=== PATIENT | female | born 1990 | race Asian ===

== ENCOUNTER 2021-07-14 15:40 | Emergency (ER) | payer SELFPAY ==
[2021-07-14 16:14] VITALS: BP 121/76
--- NOTE | 2021-07-14 16:23 | Emergency Department Report ---
ED General Adult HPI - General Chief complaint: Urogenital-Female Stated complaint: BLADDER PAIN Time Seen by Provider: 07/14/21 15:56 Source: patient Mode of arrival: Ambulatory Limitations: No Limitations - History of Present Illness Initial comments: 30-year-old -[place] female patient presents with complaints of hematuria and pelvic pain post urination today. She denies any abnormal vaginal discharge, but admits to urinary frequency and dyspareunia along with postcoital bleeding. No fever/chills/sweats per patient. She also denies any abdominal surgical history. Current pain is 0/10 in severity. She denies any significant past medical history - Related Data Previous Rx's Medication Instructions Recorded Last Taken Type Doxycycline Monohydrate 100 mg PO BID 7 Days #14 capsule 07/14/21 Unknown Rx metroNIDAZOLE [Flagyl TAB] 500 mg PO Q12HR 7 Days #14 tab 07/14/21 Unknown Rx Allergies Allergy/AdvReac Type Severity Reaction Status Date / Time No Known Allergies Allergy Unverified 07/14/21 15:41 ED Review of Systems ROS: Stated complaint: BLADDER PAIN Other details as noted in HPI Constitutional: denies: chills, fever, malaise Gastrointestinal: denies: nausea, vomiting, diarrhea, constipation, hematemesis Genitourinary: frequency, hematuria. denies: discharge, abnormal menses Skin: denies: lesions, change in color Hematological/Lymphatic: denies: swollen glands ED Past Medical Hx - Medications Home Medications: Home Medications Medication Instructions Recorded Confirmed Last Taken Type Doxycycline Monohydrate 100 mg PO BID 7 Days #14 capsule 07/14/21 Unknown Rx metroNIDAZOLE [Flagyl TAB] 500 mg PO Q12HR 7 Days #14 tab 07/14/21 Unknown Rx ED Physical Exam - General Limitations: No Limitations General appearance: alert, in no apparent distress - Head Head exam: Present: atraumatic, normocephalic - Eye Eye exam: Present: normal appearance. Absent: scleral icterus - Respiratory Respiratory exam: Absent: respiratory distress - Cardiovascular Cardiovascular Exam: Present: regular rate - GI/Abdominal GI/Abdominal exam: Present: soft, normal bowel sounds. Absent: distended, tenderness, guarding, rebound, rigid - Speculum exam: Present: vaginal discharge (White). Absent: cervical discharge Bi-manual exam: Present: other (Cervix is mildly friable). Absent: cervical motion tendernes - Neurological Exam Neurological exam: Present: alert, oriented X3, normal gait - Psychiatric Psychiatric exam: Present: normal affect, normal mood - Skin Skin exam: Present: warm, dry, intact, normal color. Absent: rash ED Course Vital Signs 07/14/21 15:43 Temperature 98.6 F Pulse Rate 87 Respiratory 18 Rate Blood Pressure 121/76 O2 Sat by Pulse 99 Oximetry ED Medical Decision Making - Lab Data Lab Results 07/14/21 Range/Units Unknown Urine Color Yellow (Yellow) Urine Turbidity Cloudy (Clear) Urine pH 6.0 (5.0-7.0) Ur Specific [place] 1.023 (1.003-1.030) Urine Protein 100 mg/dl (Negative) mg/dL Urine Glucose (UA) Neg (Negative) mg/dL Urine Ketones Neg (Negative) mg/dL Urine Blood Lg (Negative) Urine Nitrite Pos (Negative) Urine Bilirubin Neg (Negative) Urine Urobilinogen < 2.0 (<2.0) mg/dL Ur Leukocyte Esterase Lg (Negative) Urine WBC (Auto) > 182.0 H (0.0-6.0) /HPF Urine RBC (Auto) > 182.0 (0.0-6.0) /HPF U Epithel Cells (Auto) 4.0 (0-13.0) /HPF Urine Bacteria (Auto) 2+ (Negative) /HPF Urine Mucus 3+ /HPF Urine HCG, Qual Negative (Negative) - Medical Decision Making 30-year-old -[place] female patient presents with complaints of hematuria and pelvic pain post urination today. She denies any abnormal vaginal discharge, but admits to urinary frequency and dyspareunia along with postcoital bleeding. No fever/chills/sweats per patient. She also denies any abdominal surgical history. Current pain is 0/10 in severity. She denies any significant past medical history UA shows >182 WBCs. No CMT on exam, however there is white vaginal discharge noted. Wet prep is negative for trichomonas, positive for bacterial vaginosis, and also shows polymorphonuclear cells. Will cover patient for gonorrhea and chlamydia given wet prep findings and physical exam. Patient informed to also have her partner tested and treated and to refrain from intercourse for 2 to 3 weeks. Recommend patient follows up with the health department or another facility for further STI testing. She is well-appearing, her vitals are within normal limits, she is stable for discharge home. Strict return precautions were discussed in detail with patient who verbalizes understanding. Critical care attestation.: If time is entered above; I have spent that time in minutes in the direct care of this critically ill patient, excluding procedure time. ED Disposition Clinical Impression: Bacterial vaginosis, UTI (urinary tract infection) Disposition: HOME / SELF CARE / HOMELESS Is pt being admited?: No Condition: Stable Instructions: Bacterial Vaginosis (ED), Bacterial Vaginosis, Urinary Tract Infection, Adult, [id number], Safe Sex Additional Instructions: Please follow-up with the health department for STI screening test. You may also follow-up with your primary care doctor, [facility], or an urgent care. Please refrain from any sexual activity for the next 2 to 3 weeks and ensure your partner is also tested and treated Prescriptions: Doxycycline Monohydrate 100 mg PO BID 7 Days #14 capsule metroNIDAZOLE [Flagyl TAB] 500 mg PO Q12HR 7 Days #14 tab Referrals: [facility] [Outside] - 3-5 Days [facility] [Provider Group] - 3-5 Days Forms: STI Treatment and Prevention
[2021-07-14 16:56] LABS: Bacteria,Urine 2+ /HPF (Negative); Bilirubin,Urine NEG (Negative); Blood,Urine LG (Negative); Color,Urine Yellow (Yellow); Mucus,Urine 3+ /HPF; Urobilinogen,Urine < 2.0 mg/dL (<2.0)
[2021-07-14 16:57] LABS: HCG Qualitative,Urine Negative (Negative); RBC,Urine > 182.0 /HPF (0.0-6.0); WBC,Urine > 182.0 /HPF (0.0-6.0)
[2021-07-14] MEDS ORDERED: LIDOCAINE-MPF (1%) 10 MG/1 ML VIAL 5 ML INFILTRATI ONE (18:31)
== END 2021-07-14 19:24 | disposition home or self-care (01) ==
LOC: ED 15:40
DX: N76.0 Acute vaginitis (principal); N39.0 Urinary tract infection, site not specified
CPT/HCPCS: 81001; 81025; 87086; 87210; 96372; 99283; J0696; J3490

== ENCOUNTER 2021-08-02 16:13 | Emergency (ER) | payer SELFPAY | END 2021-08-02 18:00 | disposition left against medical advice (07) | LOC: ED 16:13 | DX: N39.0 Urinary tract infection, site not specified (principal); Z53.21 Procedure and treatment not carried out due to patient leaving prior to being seen by health care provider ==

== ENCOUNTER 2021-11-14 15:08 | Emergency (ER) | payer SELFPAY ==
[2021-11-14 17:24] VITALS: BP 128/89
[2021-11-14 19:38] LABS: HCG Qualitative,Urine Negative (Negative)
[2021-11-14 19:40] LABS: Bilirubin,Urine NEG (Negative); Blood,Urine NEG (Negative); Color,Urine Yellow (Yellow); Mucus,Urine 3+ /HPF; Protein,Urine <15 mg/dL mg/dL (Negative); Urobilinogen,Urine < 2.0 mg/dL (<2.0)
--- NOTE | 2021-11-14 19:58 | Emergency Department Report ---
ED Female HPI - General Chief complaint: Urogenital-Female Stated complaint: POSSIBLE UTI Time Seen by Provider: 11/14/21 18:28 Source: patient Mode of arrival: Ambulatory Limitations: No Limitations - History of Present Illness Initial comments: 30-year-old black female with no past medical history presents to the emergency department for evaluation of malodorous urine since June. She states that she was treated for UTI in June then 2 weeks later, she developed "funny" smelling urine and it has smelled like that since then. States that 1 month ago she was tested for trichomonas, HIV, gonorrhea, and chlamydia. States that all tests came back negative but she still has odor. She denies fever, abdominal pain, and vaginal discharge. MD Complaint: other (Malodorous urine) -: Gradual, month(s) (4.) Severity scale (0 -10): 0 Worsens with: none Are you Now?: No Last Menstrual Period: 10/31/21 EDC: 08/07/22 Associated Symptoms: denies: vaginal discharge, vaginal bleeding, abdominal pain, nausea/vomiting, fever/chills, headaches, loss of appetite, dysuria, hematuria, shortness of breath, syncope, weakness - Related Data Sexually active: Yes Previous Rx's Medication Instructions Recorded Last Taken Type Doxycycline Monohydrate 100 mg PO BID 7 Days #14 capsule 07/14/21 Unknown Rx metroNIDAZOLE [Flagyl TAB] 500 mg PO Q12HR 7 Days #14 tab 07/14/21 Unknown Rx Allergies Allergy/AdvReac Type Severity Reaction Status Date / Time No Known Allergies Allergy Verified 11/14/21 17:24 ED Review of Systems ROS: Stated complaint: POSSIBLE UTI Other details as noted in HPI Comment: All other systems reviewed and negative Constitutional: denies: chills, fever Respiratory: denies: shortness of breath Cardiovascular: denies: chest pain, palpitations Gastrointestinal: denies: abdominal pain, nausea, vomiting, diarrhea, hematemesis, melena, hematochezia Genitourinary: denies: urgency, dysuria, frequency, hematuria, discharge, abnormal menses Musculoskeletal: denies: back pain Skin: denies: rash Neurological: denies: headache ED Past Medical Hx - Past Medical History Previous Medical History?: No - Surgical History Past Surgical History?: No - Medications Home Medications: Home Medications Medication Instructions Recorded Confirmed Last Taken Type Doxycycline Monohydrate 100 mg PO BID 7 Days #14 capsule 07/14/21 Unknown Rx metroNIDAZOLE [Flagyl TAB] 500 mg PO Q12HR 7 Days #14 tab 07/14/21 Unknown Rx ED Physical Exam - General Limitations: No Limitations General appearance: alert, in no apparent distress - Head Head exam: Present: atraumatic, normocephalic - Eye Eye exam: Present: normal appearance. Absent: conjunctival injection - Neck Neck exam: Present: normal inspection - Respiratory Respiratory exam: Present: normal lung sounds bilaterally. Absent: respiratory distress, wheezes, rales, rhonchi, stridor, chest wall tenderness, accessory muscle use - Cardiovascular Cardiovascular Exam: Present: tachycardia, normal heart sounds - GI/Abdominal GI/Abdominal exam: Present: soft, normal bowel sounds. Absent: distended, tenderness, guarding, rebound, rigid - Speculum exam: Absent: normal speculum exam (Patient refused vaginal exam stating that she wanted to get her own swabs because she could not let a woman looking her down there) - Extremities Exam Extremities exam: Present: normal inspection - Back Exam Back exam: Present: normal inspection - Neurological Exam Neurological exam: Present: alert, oriented X3 - Psychiatric Psychiatric exam: Present: normal affect, normal mood - Skin Skin exam: Present: warm, dry, intact, normal color ED Course Vital Signs 11/14/21 17:23 Temperature 98.3 F Pulse Rate 106 H Respiratory 18 Rate Blood Pressure 128/89 O2 Sat by Pulse 98 Oximetry ED Medical Decision Making - Medical Decision Making 30-year-old black female with no past medical history presents to the emergency department for evaluation of malodorous urine since June. She states that she was treated for UTI in June then 2 weeks later, she developed "funny" smelling urine and it has smelled like that since then. States that 1 month ago she was tested for trichomonas, HIV, gonorrhea, and chlamydia. States that all tests came back negative but she still has odor. She denies fever, abdominal pain, and vaginal discharge. Urine negative for UTI and . Wet prep negative for Trichomonas, bacterial vaginosis, and yeast. No gross abnormalities noted on assessment. She was advised that swab was also sent for gonorrhea chlamydia and she would be notified if results came back positive. She refused any treatment for gonorrhea chlamydia at this time stating that she just had a negative test earlier this month. Discussed findings with patient, and she was advised to follow-up with [facility] and/or her primary care provider for further evaluation and management. She was advised to return to the emergency department for any concerning symptoms. She verbalized understanding of and agreement with plan of care. - Differential Diagnosis UTI, BV, gonorrhea, chlamydia, Critical care attestation.: If time is entered above; I have spent that time in minutes in the direct care of this critically ill patient, excluding procedure time. ED Disposition Clinical Impression: Malodorous urine Disposition: 01 HOME / SELF CARE / HOMELESS Is pt being admited?: No Does the pt Need Aspirin: No Condition: Stable Additional Instructions: Follow-up with [facility] for further evaluation and management. Referrals: LISETH BUSTILLOS MD [Primary Care Provider] - 3-5 Days VALERIANO KENNEDY MD [Staff Physician] - 3-5 Days Time of Disposition: 19:58
== END 2021-11-14 20:09 | disposition home or self-care (01) ==
LOC: ED 15:08
DX: R82.998 Other abnormal findings in urine (principal)
CPT/HCPCS: 81001; 81025; 87210; 87591; 99284